=== PATIENT | female | born 1965 | race Caucasian/White ===

== ENCOUNTER → 2016-06-26 | Outpatient (CLI) | payer OTHER ==
[2015-01-06 09:10] VITALS: BP 123/73
[~2016-06-26] MED LIST: LEVO100T5 PO
[2016-06-26 12:48] LABS: CHOLESTEROL/HDL RATIO 4.1
[2016-06-26 12:57] LABS: FREE T4 1.38 ng/dL (0.76-1.46)
== END | disposition home or self-care (01) ==
LOC: SPEC 12:14
PROVIDERS: ATTEND Internal Medicine
DX: E03.9 Hypothyroidism, unspecified (principal)
CPT/HCPCS: 36415; 80061; 84439; 84443; 86706

== ENCOUNTER → 2016-10-28 | Outpatient (CLI) | payer OTHER ==
[2015-01-06 09:10] VITALS: BP 123/73
[2016-10-28 12:44] LABS: ALBUMIN 3.7 g/dL (3.4-5.0); ALBUMIN/GLOBULIN RATIO 0.9 (1.0-1.7); CREATININE 0.7 mg/dL (0.6-1.0); GFR 87.5; POTASSIUM 3.7 mmol/L (3.5-5.1); TOTAL BILIRUBIN 0.4 mg/dL (0.2-1.0)
[2016-10-28 12:47] LABS: CHOLESTEROL/HDL RATIO 2.5
== END | disposition home or self-care (01) ==
LOC: SPEC 12:05
PROVIDERS: ATTEND Internal Medicine
DX: E78.5 Hyperlipidemia, unspecified (principal)
CPT/HCPCS: 36415; 80053; 80061

== ENCOUNTER 2017-06-19 12:31 | Outpatient (CLI) | payer OTHER | END 2017-06-24 | disposition home or self-care (01) | LOC: KCIC MAMMO 06-24 12:15 → MAMMO 12:31 | DX: Z12.31 Encounter for screening mammogram for malignant neoplasm of breast (principal) | CPT/HCPCS: 77063; 77067 ==

== ENCOUNTER → 2017-07-03 | Outpatient (CLI) | payer OTHER | END | disposition home or self-care (01) | LOC: KCIC US 10:46 | DX: N63.10 Unspecified lump in the right breast, unspecified quadrant (principal) | CPT/HCPCS: 76641 ==

== ENCOUNTER → 2018-07-02 | Outpatient (CLI) | payer OTHER ==
[2015-01-06 09:10] VITALS: BP 123/73
== END | disposition home or self-care (01) ==
LOC: SPEC 15:02
PROVIDERS: ATTEND Internal Medicine
DX: E03.9 Hypothyroidism, unspecified (principal)
CPT/HCPCS: 36415; 84443

== ENCOUNTER → 2018-08-17 | Outpatient (CLI) | payer OTHER ==
[2015-01-06 09:10] VITALS: BP 123/73
--- NOTE | 2018-08-17 16:54 | KCIC ---
Bilateral digital screening mammograms with 3-D tomosynthesis: Reason for examination: Routine screening. Comparison is made to previous studies dated 06/24/2017 and 03/13/2016. Bilateral mammograms in CC and oblique projections were obtained with 2-D imaging and 3-D tomosynthesis imaging on a Siemens Inspiration unit and reviewed on the workstation. Interpretation was made with the benefit of CAD. The skin and nipples show no abnormalities. No abnormal axillary lymph nodes are seen. The breast parenchyma is extremely dense. (Breast density: Category D.) There are no dominant masses, suspicious calcifications or architectural distortion. Impression: No evidence of malignancy. Recommend routine screening. Your patient's mammogram demonstrates that she has dense breast tissue (breast density category C or D), which could hide abnormalities, and if she has other risk factors for breast cancer that have been identified, she might benefit from supplemental screening tests that may be suggested by you as her ordering physician. Dense breast tissue, in and of itself, is a relatively common condition. Therefore, this information is not provided to cause undue concern, but rather to raise your awareness and to promote discussion with your patient regarding the presence of other risk factors, in addition to dense breast tissue. Your patient's mammography results will be sent to her. BI-RAD Category 1: Negative. "Our facility is accredited by the [employer] Mammography [employer]." This patient's information has been entered into a reminder system for the patient to be notified with the results of her examination and a target date for the next mammogram. Electronically signed by: Richa Ely MD (08/17/2018 4:51 PM) [id number]
== END | disposition home or self-care (01) ==
LOC: KCIC MAMMO 10:29
PROVIDERS: ATTEND Internal Medicine
DX: Z12.31 Encounter for screening mammogram for malignant neoplasm of breast (principal)
CPT/HCPCS: 77063; 77067

== ENCOUNTER → 2018-08-19 | Outpatient (CLI) | payer OTHER ==
[2015-01-06 09:10] VITALS: BP 123/73
[2018-08-19 13:42] LABS: FREE T4 1.19 ng/dL (0.76-1.46); THYROID STIM HORMONE (TSH) 0.032 uIU/mL (0.358-3.74)
== END | disposition home or self-care (01) ==
LOC: SPEC 12:47
PROVIDERS: ATTEND Internal Medicine
DX: E03.9 Hypothyroidism, unspecified (principal)
CPT/HCPCS: 36415; 84436; 84439; 84443

== ENCOUNTER → 2018-10-30 | Outpatient (CLI) | payer OTHER ==
[2015-01-06 09:10] VITALS: BP 123/73
[2018-10-30 13:01] LABS: ALBUMIN 4.4 g/dL (3.4-5.0); ALBUMIN/GLOBULIN RATIO 1.2 (1.0-1.7); CALCIUM 9.5 mg/dL (8.5-10.1); CREATININE 0.9 mg/dL (0.6-1.0); POTASSIUM 3.5 mmol/L (3.5-5.1); TOTAL BILIRUBIN 0.5 mg/dL (0.2-1.0); TOTAL PROTEIN 8.1 g/dL (6.4-8.2)
[2018-10-30 13:09] LABS: FREE T4 1.08 ng/dL (0.76-1.46); THYROID STIM HORMONE (TSH) 1.458 uIU/mL (0.358-3.74)
[2018-10-30 13:24] LABS: CHOLESTEROL/HDL RATIO 2.1
== END | disposition home or self-care (01) ==
LOC: SPEC 12:14
PROVIDERS: ATTEND Internal Medicine
DX: E03.9 Hypothyroidism, unspecified (principal); E78.5 Hyperlipidemia, unspecified
CPT/HCPCS: 36415; 80053; 80061; 84439; 84443

== ENCOUNTER → 2019-05-14 | Outpatient (CLI) | payer OTHER ==
[2015-01-06 09:10] VITALS: BP 123/73
--- NOTE | 2019-05-14 11:55 | KCIC ---
Bone densitometry 05/14/2019 10:56 AM Indication: Screening exam Comparison Study: None available. Discussion: Bone Densitometry was performed with dual photon absorption of the lumbar spine and left proximal femur Lumbar Spine: Bone average density is 0.820g/cm2 for L1-L4. T-Score is and -2.1. Left proximal femur Bone average density is 0.799g/cm2. T-Score is -1.2. IMPRESSION: Osteopenia. Note: Definitions established by the World Health Organization: Normal: T-score is -1.0 or above. Osteopenia: T-score is between -1.0 and -2.5. Osteoporosis: T-score is -2.5 or below. Electronically signed by: Lex Nair MD (05/14/2019 11:51 AM) [facility]
== END | disposition home or self-care (01) ==
LOC: KCIC DEXA 10:27
PROVIDERS: ATTEND Internal Medicine
DX: M85.88 Other specified disorders of bone density and structure, other site (principal); N95.1 Menopausal and female climacteric states
CPT/HCPCS: 77080

== ENCOUNTER 2019-07-21 08:27 | Emergency (ER) | payer OTHER ==
[~2019-07-21] VITALS: Ht 160 cm; Wt 43.1 kg
[2019-07-21 10:08] VITALS: BP 150/67
--- NOTE | 2019-07-21 10:21 | PHYS DOC ---
Past Medical History Past Medical History: No Pertinent History, Hypothyroid Past Surgical History: No Surgical History Alcohol Use: None Adult General Chief Complaint Chief Complaint: FLU SYMPTOM HPI HPI Patient is a 53 year old female with history of hypothyroidism who presents to the ED today complaining of body aches, chills, subjective fevers, cough, symptoms began 6 days ago. Patient denies any recent travel outside the [place] area or any exposure to people from [facility]. Review of Systems Review of Systems Constitutional: Reports subjective fevers, body aches, chills Eyes: Denies change in visual acuity, redness, or eye pain [] HENT: Denies nasal congestion or sore throat [] Respiratory: Reports cough, denies shortness of breath [] Cardiovascular: No additional information not addressed in HPI [] GI: Denies abdominal pain, nausea, vomiting, bloody stools or diarrhea [] : Denies dysuria or hematuria [] Musculoskeletal: Denies back pain or joint pain [] Integument: Denies rash or skin lesions [] Neurologic: Denies headache, focal weakness or sensory changes [] All other systems were reviewed and found to be within normal limits, except as documented in this note. Current Medications Current Medications Current Medications Medications (Trade) Dose Ordered Sig/Orestes Start Time Stop Time Status Last Admin Dose Admin Acetaminophen (Tylenol) 1,000 mg 1X ONCE 07/21/19 10:45 07/21/19 10:46 DC 07/21/19 10:43 1,000 MG Ibuprofen (Motrin) 600 mg 1X ONCE 07/21/19 10:45 07/21/19 10:46 DC 07/21/19 10:43 600 MG Allergies Allergies Allergies Coded Allergies Type Severity Reaction Last Updated Verified No Known Drug Allergies 01/06/15 No Physical Exam Physical Exam Constitutional: Well developed, well nourished, no acute distress, non-toxic appearance. [] HENT: Normocephalic, atraumatic, bilateral external ears normal, oropharynx moist, no oral exudates, nose normal. [] Eyes: PERRLA, EOMI, conjunctiva normal, no discharge. [] Neck: Normal range of motion, no tenderness, supple, no stridor. [] Cardiovascular:Heart rate regular rhythm, no murmur [] Lungs & Thorax: Bilateral breath sounds clear to auscultation [] Abdomen: Bowel sounds normal, soft, no tenderness, no masses, no pulsatile masses. [] Skin: Warm, dry, no erythema, no rash. [] Back: No tenderness, no CVA tenderness. [] Extremities: No tenderness, no cyanosis, no clubbing, ROM intact, no edema. [] Neurologic: Alert and oriented X 3, normal motor function, normal sensory function, no focal deficits noted. [] Psychologic: Affect normal, judgement normal, mood normal. [] Current Patient Data Vital Signs Vital Signs Date Time Temp Pulse Resp B/P (MAP) Pulse Ox O2 Delivery O2 Flow Rate FiO2 07/21/19 10:08 102.3 95 20 150/67 (94) 92 Room Air 102.3 Lab Values Laboratory Tests Test 07/21/19 10:10 Influenza Type A Antigen Positive (NEGATIVE) Influenza Type B Antigen Negative (NEGATIVE) EKG EKG [] Radiology/Procedures Radiology/Procedures []PROCEDURE: CHEST PA & LATERAL CHEST PA LATERAL History: Cough Comparison: None. Findings: 2 views of the chest are submitted. There is infiltrate at the right lung base, apparently in the right lower lobe. There may be trace right pleural fluid as suggested on the lateral view. Impression: 1. There is right base infiltrate. There may be trace right pleural fluid. Electronically signed by: Gonzalo Krause MD (07/21/2019 10:34 AM) [facility] DICTATED and SIGNED BY: GONZALO KRAUSE MD DATE: 07/21/19 1034 Course & Med Decision Making Course & Med Decision Making Pertinent Labs and Imaging studies reviewed. (See chart for details) This is a 53-year-old female patient presented to the ED today with flulike symptoms including body aches chills fevers cough, symptoms for 6 days. Temperature 102.3 on arrival to the ED given Tylenol and Motrin. Positive for influenza a, chest x-ray noted for right lower lobe infiltrate. Discharged on doxycycline. Tylenol/Motrin for pain or fever. Instructed to push fluids, rest, maintain good hand hygiene, follow up with primary care doctor in the course of this week or next week. Provided return precautions. Dragon Disclaimer Dragon Disclaimer This electronic medical record was generated, in whole or in part, using a voice recognition dictation system. Departure Departure Impression: Primary Impression: Fever Additional Impressions: Influenza A Right lower lobe pneumonia Disposition: 01 HOME, SELF-CARE Condition: STABLE Referrals: SHANICE PEREZ MD (PCP) Follow-up in the course of this week or next week Patient Instructions: Fever, Adult, Influenza A (H1N1), Pneumonia, Adult Additional Instructions: You tested positive for influenza A and also has pneumonia. We put you on antibiotics for pneumonia ensure you complete them. Please push fluids. Take Tylenol/Motrin as needed for fever or pain. Maintain good hand hygiene. Follow- up with your own primary care doctor in the course of this week or next week. Come back to the ED at any point symptoms worsen. Your prescriptions were sent to the pharmacy. Scripts Benzonatate (TESSALON PERLE) 100 Mg Capsule 1 CAP PO TID, #30 CAP Prov: IVAN KULKARNI [employer] PROCESSING SUPERVISOR 07/21/19 Doxycycline Hyclate (DOXYCYCLINE HYCLATE) 100 Mg Tablet 1 TAB PO BID, #14 TAB Prov: IVAN KULKARNI [employer] PROCESSING SUPERVISOR 07/21/19 Ondansetron (ONDANSETRON ODT) 4 Mg Tab.rapdis 1 TAB PO PRN Q6-8HRS, #16 TAB Prov: IVNA KULKANRI [employer] PROCESSING SUPERVISOR 07/21/19 Problem Qualifiers Primary Impression: Fever Fever type: unspecified Qualified Codes: R50.9 - Fever, unspecified Additional Impressions: Right lower lobe pneumonia Pneumonia type: due to unspecified organism Qualified Codes: J18.9 - Pneumonia, unspecified organism IVAN KULKARNI APRN Jul 21, 2019 10:21
--- NOTE | 2019-07-21 10:37 | RAD ---
CHEST PA LATERAL History: Cough Comparison: None. Findings: 2 views of the chest are submitted. There is infiltrate at the right lung base, apparently in the right lower lobe. There may be trace right pleural fluid as suggested on the lateral view. Impression: 1. There is right base infiltrate. There may be trace right pleural fluid. Electronically signed by: Milton Orellana MD (07/21/2019 10:34 AM) [facility]
[2019-07-21 10:40] LABS: INFLUENZA A PATIENT POSITIVE (NEGATIVE); INFLUENZA B PATIENT NEGATIVE (NEGATIVE)
[2019-07-21] MEDS ORDERED: ACETAMINOPHEN 500 MG TABLET PO ONE (10:45)
[2019-07-21] MEDS ORDERED: IBUPROFEN 200 MG TABLET. PO ONE (10:45)
[2019-07-21] MEDS ORDERED: ONDA4TAB12 PO (11:21)
[2019-07-21] MEDS ORDERED: BENZ100C PO (11:21)
[2019-07-21] MEDS ORDERED: DOXY100T PO (11:21)
== END 2019-07-21 11:50 | disposition home or self-care (01) ==
LOC: ER 08:27
DX: J10.08 Influenza due to other identified influenza virus with other specified pneumonia (principal); E03.9 Hypothyroidism, unspecified
CPT/HCPCS: 71046; 87804; 99285-25

== ENCOUNTER → 2019-08-20 | Outpatient (CLI) | payer OTHER ==
[2019-07-21 10:08] VITALS: BP 150/67
[~2019-08-20] MED LIST changes: +BENZ100C PO; +DOXY100T PO; +ONDA4TAB12 PO
--- NOTE | 2019-08-20 11:30 | KCIC ---
EXAM: Bilateral digital screening mammogram with tomosynthesis. HISTORY: 54-year-old female presents for screening mammography. TECHNIQUE: Full-field digital craniocaudal and mediolateral oblique 2D and 3D tomosynthesis images of both breasts are obtained for evaluation. Computer aided detection with [employer] software version 9.3 was applied. COMPARISON: 08/17/2018 BREAST PARENCHYMAL DENSITY: Level D - Extremely dense. FINDINGS: There is no new suspicious mass, microcalcification or region of architectural distortion. IMPRESSION: BI-RADS Category 2: Benign finding(s). RECOMMENDATION: Annual mammography is recommended. If your mammogram demonstrates that you have dense breast tissue, which could hide abnormalities, and if you have other risk factors for breast cancer that have been identified, you might benefit from supplemental screening tests that may be suggested by your ordering physician. Dense breast tissue, in and of itself, is a relatively common condition. This information is not provided to cause undue concern, but rather to raise your awareness and to promote discussion with your physician regarding the presence of other risk factors, in addition to dense breast tissue. A report of your mammography results will be sent to you and your physician. You should contact your physician if you have any questions or concerns regarding this report. Mammography is a sensitive method for finding small breast cancers, but it does not detect them all and is not a substitute for careful clinical examination. A negative mammogram does not negate a clinically suspicious finding and should not result in delay in biopsying a clinically suspicious abnormality. PQRS compliance statement - Patient information was entered into a reminder system with a target due date for the next mammogram. "Our facility is accredited by the [employer] Mammography Program." Electronically signed by: Birdie Newell MD (08/20/2019 11:27 AM) [facility]
== END | disposition home or self-care (01) ==
LOC: KCIC MAMMO 08:45
PROVIDERS: ATTEND Internal Medicine
DX: Z12.31 Encounter for screening mammogram for malignant neoplasm of breast (principal)
CPT/HCPCS: 77063; 77067

== ENCOUNTER → 2019-08-30 | Outpatient (CLI) | payer OTHER ==
[2019-08-30 10:25] LABS: ALBUMIN/GLOBULIN RATIO 1.1 (1.0-1.7); CALCIUM 8.9 mg/dL (8.5-10.1); CREATININE 0.9 mg/dL (0.6-1.0); GFR 64.8; POTASSIUM 4.1 mmol/L (3.5-5.1); TOTAL BILIRUBIN 0.4 mg/dL (0.2-1.0); TOTAL PROTEIN 7.8 g/dL (6.4-8.2)
[2019-08-30 10:40] LABS: CHOLESTEROL/HDL RATIO 2.2
[2019-08-30 21:08] LABS: THYROXINE 7.7 ug/dL (4.5-12.0)
== END | disposition home or self-care (01) ==
LOC: SPEC 09:39
PROVIDERS: ATTEND Internal Medicine
DX: M85.88 Other specified disorders of bone density and structure, other site (principal); E78.5 Hyperlipidemia, unspecified; E03.9 Hypothyroidism, unspecified
CPT/HCPCS: 36415; 80053; 80061; 82306; 84436; 84443; 84480

== ENCOUNTER 2020-04-16 16:11 | Emergency (ER) | payer OTHER ==
[~2020-04-16] VITALS: Ht 160 cm; Wt 45.0 kg
[2020-04-16 16:20] VITALS: BP 138/71
--- NOTE | 2020-04-16 16:45 | PHYS DOC ---
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 She is right-handed. Review of Systems: Review of Systems: Constitutional: Denies fever or chills. [] Musculoskeletal: Denies back pain or joint pain. [] Integument: Reports left thumb laceration Neurologic: Denies headache, focal weakness or sensory changes. [] Psychiatric: Denies depression or anxiety. [] Heart Score: Risk Factors: Risk Factors: DM, Current or recent (<one month) smoker, HTN, HLP, family history of CAD, obesity. Risk Scores: Score 0 - 3: 2.5% MACE over next 6 weeks - Discharge Home Score 4 - 6: 20.3% MACE over next 6 weeks - Admit for Clinical Observation Score 7 - 10: 72.7% MACE over next 6 weeks - Early Invasive Strategies Allergies: Allergies: Allergies Coded Allergies Type Severity Reaction Last Updated Verified No Known Drug Allergies 01/06/15 No Physical Exam: PE: Constitutional: Well developed, well nourished, no acute distress, non-toxic appearance. [] Skin: Left distal thumb ventral aspect with a laceration approximately 2 cm long, there is no obvious tendon involvement. Full range of motion to the left thumb including flexion and extension of the finger. Adequate radial sensation to the left hand. +2 left radial pulse. Cap refill less than 2 seconds to left fingers Back: No tenderness, no CVA tenderness. [] Extremities: No tenderness, no cyanosis, no clubbing, ROM intact, no edema. [] Neurologic: Alert and oriented X 3, normal motor function, normal sensory function, no focal deficits noted. [] Psychologic: Affect normal, judgement normal, mood normal. [] EKG: EKG: [] Radiology/Procedures: Radiology/Procedures: Laceration/Wound Repair Wound Location: Left thumb laceration Wound's Depth, Shape: Vertical Wound Length (cm): Approximately 2 cm Wound Explored: clean Irrigated w/ Saline (ccs): 30 Betadine Prep?: Yes Anesthesia: Buffered lidocaine Volume Anesthetic (ccs): Approximately 2 cc Wound Repaired With: Ethilon Suture Size/Type: 5.0/Interrupted sutures Number of Sutures: 4 Progress :Wound was covered with nonstick dressing Course & Med Decision Making: Course & Med Decision Making Pertinent Labs and Imaging studies reviewed. (See chart for details) This is a 54-year-old female patient presenting to the ED today with left thumb laceration. Tetanus was updated. Laceration was closed by me as noted in procedures. Wound care instructions and return precautions was provided to patient. Dragon Disclaimer: Dragon Disclaimer: This electronic medical record was generated, in whole or in part, using a voice recognition dictation system. Departure Departure Impression: Primary Impression: Laceration of left thumb Qualified Codes: S61.012A - Laceration without foreign body of left thumb without damage to nail, initial encounter Disposition: 01 DC HOME SELF CARE/HOMELESS Condition: STABLE Referrals: SHANICE PEREZ MD (PCP) Follow-up in 1 week as needed Patient Instructions: Fingertip Laceration Additional Instructions: Your laceration to the left thumb was closed with stitches, keep the area clean and dry. You can shower and wash your hands as needed, do not soak your affected finger in water. Apply Neosporin to the area twice a day. Monitor the area for any signs of infection including but not limited to increased redness, warmth, yellow drainage from the area and return to the ED or see your own doctor if they occur. Follow up with the Ed or your own doctor in 7-10 days for suture removal IVAN KULKARNI APRN Apr 16, 2020 16:45
--- NOTE | 2020-04-16 16:58 | RAD ---
Three-view left thumb dated 08/17/2019. No comparison available. CLINICAL INDICATION: Pain after injury. FINDINGS: 3 views of left thumb show normal bony alignment. No displaced fracture. No acute osseous or articular abnormality. No periostitis or bone destruction. No radiopaque foreign body. IMPRESSION: No acute findings. Electronically signed by: Darrion Hernandez MD (04/16/2020 4:55 PM) [place]
[2020-04-16] MEDS ORDERED: DIPH,PERTUSS(ACELL),TET VAC/PF 0.5 ML SYRINGE. VAX IM ONE (17:00)
[2020-04-16] MEDS ORDERED: LIDOCAINE WITH 8.4% SOD BICARB 3 ML DISP.SYRIN. INJ ONE (17:00)
== END 2020-04-16 17:45 | disposition home or self-care (01) ==
LOC: ER 16:11
DX: S61.012A Laceration without foreign body of left thumb without damage to nail, initial encounter (principal); E03.9 Hypothyroidism, unspecified; Y28.8XXA Contact with other sharp object, undetermined intent, initial encounter; Y93.89 Activity, other specified; Y92.89 Other specified places as the place of occurrence of the external cause; Y99.8 Other external cause status
CPT/HCPCS: 12001; 73140; 90471; 90715; 99283; J3490

== ENCOUNTER → 2020-08-08 | Outpatient (CLI) | payer OTHER | LOC: SPEC 12:25 | PROVIDERS: ATTEND Internal Medicine | DX: E55.9 Vitamin D deficiency, unspecified (principal) | CPT/HCPCS: 36415; 82306 ==

== ENCOUNTER → 2020-09-29 | Outpatient (CLI) | payer OTHER ==
--- NOTE | 2020-09-29 14:01 | KCIC ---
Bilateral digital screening mammograms with 3-D tomosynthesis: Reason for examination: Routine screening. Comparison is made to previous studies dated back to 03/13/2016. Bilateral mammograms in CC and oblique projections were obtained with 2-D imaging and 3-D tomosynthes is imaging on a Siemens Inspiration unit and reviewed on the workstation. Interpretation was made wit h the benefit of CAD. The skin and nipples show no abnormalities. No abnormal axillary lymph nodes are seen. The breast par enchyma is extremely dense. (Breast density: Category D.) There are no dominant masses, suspicious ca lcifications or architectural distortion. Impression: No evidence of malignancy. Recommend routine screening. Your patient's mammogram demonstrates that she has dense breast tissue (breast density category C or D), which could hide abnormalities, and if she has other risk factors for breast cancer that have bee n identified, she might benefit from supplemental screening tests that may be suggested by you as her ordering physician. Dense breast tissue, in and of itself, is a relatively common condition. Therefo re, this information is not provided to cause undue concern, but rather to raise your awareness and t o promote discussion with your patient regarding the presence of other risk factors, in addition to d ense breast tissue. Your patient's mammography results will be sent to her. BI-RAD Category 1: Negative. "Our facility is accredited by the [employer] Mammography Program." This patient's information has been entered into a reminder system for the patient to be notified wit h the results of her examination and a target date for the next mammogram. Electronically signed by: Richa Ely MD (09/29/2020 1:59 PM) [facility]
== END ==
LOC: KCIC MAMMO 12:24
PROVIDERS: ATTEND Internal Medicine
DX: Z12.31 Encounter for screening mammogram for malignant neoplasm of breast (principal)
CPT/HCPCS: 77063; 77067

== ENCOUNTER → 2021-01-21 | Outpatient (CLI) | payer OTHER ==
[2021-01-21 11:16] LABS: ALBUMIN 4.1 g/dL (3.4-5.0); ALBUMIN/GLOBULIN RATIO 1.1 (1.0-1.7); CALCIUM 9.1 mg/dL (8.5-10.1); CHOLESTEROL/HDL RATIO 3.8; CREATININE 0.8 mg/dL (0.6-1.0); GFR 73.9; POTASSIUM 4.5 mmol/L (3.5-5.1); TOTAL BILIRUBIN 0.3 mg/dL (0.2-1.0); TOTAL PROTEIN 7.9 g/dL (6.4-8.2)
[2021-01-21 11:30] LABS: BASO # 0.1 x10^3/uL (0.0-0.2); BASO % 2 % (0-3); EOS # 0.1 x10^3/uL (0.0-0.7); EOS % 4 % (0-3); HEMATOCRIT 41.9 % (36.0-47.0); LYMPH # 1.1 x10^3/uL (1.0-4.8); LYMPH % 29 % (24-48); MEAN CORPUSCULAR HEMOGLOBIN 32 pg (25-35); MEAN CORPUSCULAR HGB CONC 34 g/dL (31-37); MEAN CORPUSCULAR VOLUME 96 fL (79-100); MONO # 0.4 x10^3/uL (0.0-1.1); MONO % 10 % (0-9); NEUT # 2.1 x10^3/uL (1.8-7.7); NEUT % 55 % (31-73); PLATELET COUNT 129 x10^3/uL (140-400); RED BLOOD COUNT 4.37 x10^6/uL (3.50-5.40); RED CELL DISTRIBUTION WIDTH 13.2 % (11.5-14.5); WHITE BLOOD COUNT 3.7 x10^3/uL (4.0-11.0)
[2021-01-22 01:08] LABS: HEMOGLOBIN A1C 5.9 % (4.8-5.6)
== END ==
LOC: SPEC 08:20
PROVIDERS: ATTEND Internal Medicine
DX: E03.9 Hypothyroidism, unspecified (principal); E78.5 Hyperlipidemia, unspecified
CPT/HCPCS: 36415; 80053; 80061; 82306; 83036; 84443; 85025

== ENCOUNTER 2021-02-02 11:40 | Emergency (ER) | payer OTHER ==
[~2021-02-02] VITALS: Ht 162.6 cm; Wt 70.0 kg
--- NOTE | 2021-02-02 12:21 | PHYS DOC ---
Past Medical History Past Medical History: High Cholesterol, Hypothyroid, Other Additional Past Medical Histor: hepatitis C Past Surgical History: No Surgical History Smoking Status: Never Smoker Alcohol Use: Rarely General Adult EDM: Chief Complaint: CHEST PAIN HPI: HPI: Patient is a 55 year old female with history of HTN, hypothyroid who presents with brief paroxysmal left-sided chest pain. Described as sharp. First noticed at 2 AM. Last for 10-15 seconds at a time. It has occurred approximately 4 times this morning. They have always gone away spontaneously. It is not pleuritic. Not exertional. Does not seem to be associated with any particular movement. She has never had this pain before. Does not radiate. No associated shortness of breath. Is now asymptomatic. She has had no lower extremity ed orquidea, pain, or erythema. Has not had any recent surgeries or immobilizations. Is not on oral contraceptive agents. No history of VTE. Only medications are rosuvastatin and levothyroxine. Review of Systems: Review of Systems: Constitutional: Denies fever or chills. [] Eyes: Denies change in visual acuity. [] HENT: Denies nasal congestion or sore throat. [] Respiratory: Denies cough or shortness of breath. [] Cardiovascular: + chest pain. No edema. [] GI: Denies abdominal pain, nausea, vomiting, bloody stools or diarrhea. [] : Denies dysuria. [] Musculoskeletal: Denies back pain or joint pain. [] Integument: Denies rash. [] Neurologic: Denies headache, focal weakness or sensory changes. [] Endocrine: Denies polyuria or polydipsia. [] Lymphatic: Denies swollen glands. [] Psychiatric: Denies depression or anxiety. [] Heart Score: C/O Chest Pain: Yes HEART Score for Chest Pain: HEART Score for Chest Pain Response (Comments) Value History Slighlty/Non-Suspicious 0 ECG Normal 0 Age >45 - < 65 1 Risk Factors 1 or 2 Risk Factors 1 Troponin < Normal Limit 0 Total 2 Risk Factors: Risk Factors: DM, Current or recent (<one month) smoker, HTN, HLP, family history of CAD, obesity. Risk Scores: Score 0 - 3: 2.5% MACE over next 6 weeks - Discharge Home Score 4 - 6: 20.3% MACE over next 6 weeks - Admit for Clinical Observation Score 7 - 10: 72.7% MACE over next 6 weeks - Early Invasive Strategies Family History: Family History: No history of early coronary artery disease/[place] Allergies: Allergies: Allergies Coded Allergies Type Severity Reaction Last Updated Verified No Known Drug Allergies 01/06/15 No Physical Exam: PE: Constitutional: Well developed, well nourished, no acute distress, non-toxic appearance. [] HENT: Normocephalic, atraumatic, bilateral external ears normal, oropharynx moist, no oral exudates, nose normal. [] Eyes: PERRLA, EOMI, conjunctiva normal, no discharge. [] Neck: Normal range of motion, no tenderness, supple, no stridor. [] Cardiovascular:Heart rate regular rhythm, no murmur [] Lungs & Thorax: Bilateral breath sounds clear to auscultation. No chest wall tenderness to palpation. Pain is not reproduced with movement of the shoulders. [] Abdomen: Bowel sounds normal, soft, no tenderness, no masses, no pulsatile masses. [] Skin: Warm, dry, no erythema, no rash. [] Back: No tenderness, no CVA tenderness. [] Extremities: No tenderness, no cyanosis, no clubbing, ROM intact, no edema. [] Neurologic: Alert and oriented X 3, normal motor function, normal sensory function, no focal deficits noted. [] Psychologic: Affect normal, judgement normal, mood normal. [] Current Patient Data: Vital Signs: Vital Signs Date Time Temp Pulse Resp B/P (MAP) Pulse Ox O2 Delivery O2 Flow Rate FiO2 02/02/21 12:10 98.2 75 15 145/82 100 Room Air 98.2 EKG: EKG: Sinus rhythm. Rate 71. Normal axis. Normal intervals. No ischemic changes. Radiology/Procedures: Radiology/Procedures: CXR[] Impression: [facility] [address] [place] [address] IMAGING REPORT Signed PATIENT: BEVERLY KIMBROUGH ACCOUNT: [id number] : 1965 LOCATION: ER AGE: 55 SEX: F EXAM STATUS: PRE ER ORD. PHYSICIAN: VICKIE FUNK MD REASON: chest pain, left sided PROCEDURE: CHEST AP ONLY EXAMINATION: Chest radiograph. VIEWS: Single AP view of the chest COMPARISON: 12/03/2020 INDICATION:55 years, Female, left-sided pain. FINDINGS: Normal cardiomediastinal silhouette. No focal consolidation. No pleural effusion or pneumothorax. No acute osseous process. IMPRESSION: No acute cardiopulmonary process. Electronically signed by: Louis Snowden DO (02/02/2021 12:36 PM) [id number] DICTATED and SIGNED BY: LOUIS SNOWDEN DO DATE: 02/02/21 [id number] 0 Course & Med Decision Making: Course & Med Decision Making Pertinent Labs and Imaging studies reviewed. (See chart for details) Patient is a 55-year-old female with history of HLD and hypothyroidism who presents with brief paroxysms of 10 to 15 seconds of left-sided chest pain. Is currently asymptomatic. Pain is not exertional, pleuritic, or positional. EKG is nonischemic. Vital signs are normal. Satting 100% on room air. Doubt PE. Do not feel that she requires a dimer or CTA. History does not sound typically anginal. Heart score equals 2. If initial troponin is negative feel that she will be safe for discharge with outpatient follow-up for consideration of stress testing. Will obtain CXR to exclude PTX, PNA, or other parenchymal disease causing her pain. 1220 CXR clear Troponin negative. CMP, CBC reassuring. Feel she can be discharged with outpatient f/u and strict return precautions. 1328 Dragon Disclaimer: Dragon Disclaimer: This electronic medical record was generated, in whole or in part, using a voice recognition dictation system. Departure Departure Impression: Primary Impression: Chest pain Disposition: HOME / SELF CARE / HOMELESS Condition: STABLE Referrals: SHANICE PEREZ MD (PCP) Schedule a follow up appointment in the next 5 days. Additional Instructions: Your work-up was reassuring against dangerous causes of chest pain. There is no signs of damage to your heart. There is no signs of pneumonia or damage to your lungs on x-ray. Please follow-up with your primary care doctor, particularly if this persist. They may want to do further testing such as a stress test to further evaluate your heart. If your pain worsens, or you have new/concerning symptoms such as fever, chills, shortness of breath, or constant pain please return to the emergency department for reevaluation. VICKIE FUNK MD Feb 02, 2021 12:21
[2021-02-02 12:27] LABS: BASO % 1 % (0-3); EOS # 0.1 x10^3/uL (0.0-0.7); EOS % 2 % (0-3); HEMATOCRIT 38.6 % (36.0-47.0); HEMOGLOBIN 13.3 g/dL (12.0-15.5); LYMPH # 0.8 x10^3/uL (1.0-4.8); LYMPH % 23 % (24-48); MEAN CORPUSCULAR HEMOGLOBIN 32 pg (25-35); MEAN CORPUSCULAR HGB CONC 34 g/dL (31-37); MEAN CORPUSCULAR VOLUME 94 fL (79-100); MONO # 0.3 x10^3/uL (0.0-1.1); MONO % 8 % (0-9); NEUT # 2.3 x10^3/uL (1.8-7.7); NEUT % 66 % (31-73); PLATELET COUNT 126 x10^3/uL (140-400); RED BLOOD COUNT 4.09 x10^6/uL (3.50-5.40); RED CELL DISTRIBUTION WIDTH 13.1 % (11.5-14.5); WHITE BLOOD COUNT 3.4 x10^3/uL (4.0-11.0)
--- NOTE | 2021-02-02 12:38 | RAD ---
EXAMINATION: Chest radiograph. VIEWS: Single AP view of the chest COMPARISON: 12/03/2020 INDICATION:55 years, Female, left-sided pain. FINDINGS: Normal cardiomediastinal silhouette. No focal consolidation. No pleural effusion or pneumothorax. No acute osseous process. IMPRESSION: No acute cardiopulmonary process. Electronically signed by: Destin Snowden DO (02/02/2021 12:36 PM) [id number]
[2021-02-02 12:41] LABS: CALCIUM 9.1 mg/dL (8.5-10.1); CREATININE 0.9 mg/dL (0.6-1.0); GFR 64.5; POTASSIUM 4.1 mmol/L (3.5-5.1)
[2021-02-02 12:48] LABS: ALBUMIN 3.8 g/dL (3.4-5.0); ALBUMIN/GLOBULIN RATIO 1.1 (1.0-1.7); TOTAL BILIRUBIN 0.4 mg/dL (0.2-1.0); TOTAL PROTEIN 7.3 g/dL (6.4-8.2)
[2021-02-02 13:20] VITALS: BP 117/63
--- NOTE | 2021-02-03 02:14 | EKG ---
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
--- NOTE | 2021-02-14 11:06 | EKG ---
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
== END 2021-02-02 13:37 | disposition home or self-care (01) ==
LOC: ER 11:40
DX: R07.89 Other chest pain (principal); E03.9 Hypothyroidism, unspecified; I10 Essential (primary) hypertension; E78.00 Pure hypercholesterolemia, unspecified
CPT/HCPCS: 36415; 71045; 80053; 84484; 85025; 93005; 99285-25

== ENCOUNTER → 2021-07-11 | Outpatient (CLI) | payer OTHER | LOC: LAB 08:12 | PROVIDERS: ATTEND Internal Medicine Pulmonary Disease | DX: U07.1 COVID-19 (principal) | CPT/HCPCS: U0003; U0005 ==